=== PATIENT | male | born 1965 | race Caucasian/White ===

== ENCOUNTER 2024-08-28 09:52 | Emergency (ER) | payer OTHER, SELFPAY ==
--- NOTE | 2024-08-28 09:57 | ED_ITS ---
HPI - Skin/Abscess/Foreign Bdy General Chief complaint: Skin/Abscess/Foreign Body Stated complaint: Skin Sore Time Seen by Provider: 08/28/24 10:08 Source: patient and RN notes reviewed Mode of arrival: ambulatory Limitations: dementia History of Present Illness HPI narrative: 59-year-old male presents with concern for abscess on his right buttock. He reports he noticed the area on , his become larger painful. He reports that started draining slightly last night. He denies fever, body aches, chills. MD complaint: other (Redness) Related Data Allergies Allergy/AdvReac Type Severity Reaction Status Date / Time Penicillins Allergy Unknown Unknown Verified 08/28/24 10:08 Review of Systems Review of Systems: CONSTITUTIONAL: Denies malaise, chills, sweats, or fever. EYES: Denies redness, or discharge. ENT: Denies rhinorrhea, congestion, swollen lips, swollen tongue CARDIOVASCULAR: Denies chest pain, palpitations, or edema. RESPIRATORY: Denies cough or dyspnea. GASTROINTESTINAL: Denies abdominal pain, nausea, vomiting SKIN: Reports raised area of redness, swelling to the right buttock. Reports a small amount drainage. Denies vesicles, bullae, numbness, pain beyond proportion MUSCULOSKELETAL: Denies joint pain or myalgia. NEUROLOGIC: Denies headache. All systems reviewed & are unremarkable except as noted in HPI and below PMFSH Comments At time of signature, agree with nursing past medical, surgical, social and family history. There is no relevant family history pertinent to the presenting complaint Exam Narrative: GENERAL: Well-appearing, well-nourished, and in no acute distress. HEAD: Normocephalic, atraumatic. EYES: PERRLA, conjunctivae clear ENT: Mucous membranes moist. NECK: Supple. No lymphadenopathy CHEST: Clear to auscultation. No respiratory distress. HEART: Regular rate and rhythm. SKIN: Warm, dry. Erythema, induration, tenderness, warmth with sharp margins noted the right buttock with small amount fluctuation and miss small area with drainage noted. No vesicles, bullae, necrosis, ecchymosis, crepitus noted. NEURO: Alert and oriented x3. PSYCH: Normal mood and affect Course Course Emergency Course: Patient is aware of diagnosis, understands and agrees to treatment plan. Anticipatory guidance given. Patient agrees to follow-up as directed and is aware of reasons to seek care at the emergency department. Portions of this record may have been created with voice recognition software Level of Care: [facility] Emergency Department Visit Vital Signs Vital signs: Reviewed. Procedures Abscess I/D other: Date of Incision: 08/28/24 Time of Incision: 10:46 Side (if applicable): right Local Anesthetic: lidocaine 1% Amount of anesthesia used (mL): 2 Technique: incised with #11 blade Amount of fluid expressed (mL): 4 Irrigation: Yes Packing used?: none I&D Results: Pus MDM - Skin/Abscess/Foreign Bdy MDM Narrative Medical decision making narrative: I evaluated this in the [facility]. History is obtained from patient who is an independent historian and physical exam was performed.? Available medical records were reviewed. ? Exam findings and relevant testing show no acute concerns or changes; patient is non-toxic appearing and is in no distress. Does not appear at this time to be erythema multiforme, bullous, SJS, TEN; no evidence at this time to suggest RMSF, NSTI, endocarditis or Lyme disease; patient looks well, nontoxic and is tolerating oral intake; no neurologic signs or symptoms; no headache, photophobia or neck pain; afebrile.? Patient does not have history of of penetrating trauma, laceration, blunt trauma, recent surgery, immunosuppression, malignancy, obesity, alcoholism, corticosteroid use.? Discussed the importance of follow-up, patient agrees; question, cellulitis versus necrotizing soft tissue infection versus abscess.?? Patient is appropriate for outpatient treatment and follow-up. Critical Care Time Critical Care Time Critical Care Time: No Discharge Plan Discharge Clinical Impression: Abscess of skin or subcutaneous tissue Patient Disposition: Home Condition: Stable Instructions: Antibiotic Form, Abscess Follow-up (ED) Additional Instructions: You have had an abscess drained at [facility]. You may shower - let the soapy water clean your wound, do not scrub it. Keep your wound covered to prevent transmission of infection to other people. Follow up with your primary care physician in 2-3 days for a wound check. Go to the Emergency Department immediately if you develop any of the following symptoms: Fevers, Increased redness or swelling around where your abscess was, Increased pain, or Generalized weakness or vomiting Please Keep the wound covered and dry. Once a day: wash the wound with soap/water, apply bacitracin or neosporin and re-cover the wound. If you have any worsening of symptoms, including severe pain/swelling/numbness/changes in sensation/weakness, redness which expands more than it is right now or any other concerns please return to the ED immediately. Having an established primary care provider is essential to your health. Please call [phone] for help finding a primary care provider in your area that accepts your insurance. Patient Language: Estonian Prescriptions: New doxycycline monohydrate 100 mg tablet 100 mg PO BID 7 Days Qty: 14 0RF Follow-up/Referrals: Dash Mills MD [Physician] - PHYSICIAN,CREDIT REVIEW OFFICER [Primary Care Provider] - Stand Alone Forms: Work/School Release IP Time of Disposition: 10:42
[2024-08-28 10:00] VITALS: BP 154/90; PULSE 106; RESP 20; TEMP 37.3; O2SAT 100
--- NOTE | 2024-08-28 10:54 | PC.NURSE ---
1050 Mother informed staff pt glucose reading 43. Pt given apple juice and oral glucose. Pt diaphoretic.
--- NOTE | 2024-08-28 11:15 | PC.NURSE ---
1052 Charted on wrong pt. pt blood sugar not low pt was not given orange juice or oral glucose. Unable to delete prior note.
== END 2024-08-28 10:47 | disposition home or self-care (01) ==
PROVIDERS: Emergency Provider Nurse Practitioner
DX: L02.31 Cutaneous abscess of buttock (principal)
CPT/HCPCS: 10060; 87070; 87075; 87181; 87205; 99203; G0463; J2003